=== PATIENT | female | born 1970 | race Caucasian/White ===

== ENCOUNTER 2017-08-18 07:56 | Day surgery (SDC) | payer OTHER | END 2017-08-18 17:00 | disposition home or self-care (01) | LOC: CIR.AMB 07:56 | DX: N87.0 Mild cervical dysplasia (principal); N72 Inflammatory disease of cervix uteri ==

== ENCOUNTER 2017-10-16 16:34 | Emergency (ER) | payer OTHER ==
[~2017-10-16] VITALS: Ht 165.1 cm; Wt 72.1 kg
[2017-10-16] MEDS ORDERED: MIRALAX510 GM PO (18:30)
== END 2017-10-16 18:45 | disposition home or self-care (01) ==
LOC: ER 16:34
DX: K59.09 Other constipation (principal); N39.0 Urinary tract infection, site not specified; R10.2 Pelvic and perineal pain

== ENCOUNTER → 2017-11-03 | Day surgery (SDC) | payer OTHER ==
[~2017-11-03] MED LIST: MIRALAX510 GM PO
== END | disposition home or self-care (01) ==
LOC: CIR.AMB 07:20
DX: N93.8 Other specified abnormal uterine and vaginal bleeding (principal)